=== PATIENT | male | born 1930 | race Caucasian/White ===

== ENCOUNTER 2019-10-09 22:41 | Inpatient (IN) | payer MEDICARE, OTHER ==
[~2019-10-09] VITALS: Ht 182.9 cm; Wt 95.3 kg
--- NOTE | 2019-10-09 22:52 | NUR ---
PATIENT WALKED IN FROM HOME WITH C/O RUQ ABDOMINAL PAIN, NAUSEA/VOMITING FOR 1 WEEK. WAS TOLD BY HIS MD DR. SPEAR TO COME IN .
[2019-10-09] MEDS ORDERED: GLIM4TAB PO (23:01)
[2019-10-09] MEDS ORDERED: IV NORMAL SALINE 500 ML IV ONE (23:15)
[2019-10-09] MEDS ORDERED: MORPHINE SULFATE 2 MG/1 ML DISP.SYRIN IV ONE (23:15)
[2019-10-09] MEDS ORDERED: PIPERACILLIN SODIUM/TAZOBACTAM 3.375 G in IV DEXTROSE 5% 50 ML IV ONE (23:15)
[2019-10-09] MEDS ORDERED: ONDANSETRON 4 MG/2 ML VIAL ONE (23:15)
[2019-10-09] MEDS ORDERED: MORPHINE SULFATE 2 MG/1 ML DISP.SYRIN ONE (23:15)
[2019-10-09] MEDS ORDERED: PIPERACILLIN/TAZOBACTAM/D5W 50 ML IV ONE (23:28)
[2019-10-09 23:31] LABS: BASOPHILS % (AUTO) 0.4 % (0.0-2.0); EOSINOPHILS # (AUTO) 0.3 K/uL (0.0-0.7); EOSINOPHILS % (AUTO) 3.9 % (0.0-7.0); HEMATOCRIT 48.3 % (36.7-47.1); HEMOGLOBIN 16.5 g/dL (12.5-16.3); LYMPHOCYTES # (AUTO) 1.1 K/uL (20.0-40.0); LYMPHOCYTES % (AUTO) 13.8 % (20.5-51.5); MEAN CORPUSCULAR HEMOGLOBIN 30.4 uug (23.8-33.4); MEAN CORPUSCULAR HGB CONC 34 g/dL (32.5-36.3); MEAN CORPUSCULAR VOLUME 89.1 fL (73.0-96.2); MONOCYTES # (AUTO) 0.8 K/uL (2.0-10.0); MONOCYTES % (AUTO) 9.8 % (0.0-11.0); NEUTROPHILS # (AUTO) 5.8 K/uL (1.8-8.9); NEUTROPHILS % (AUTO) 72.1 % (38.5-71.5); PLATELET COUNT (AUTO) 311 K/uL (152-348); POTASSIUM 4.4 mmol/L (3.5-5.1); RED BLOOD CELL COUNT(AUTO) 5.43 MIL/uL (4.06-5.63)
[2019-10-09 23:46] LABS: BILIRUBIN,DIRECT 0.3 mg/dL (0.0-0.2); BILIRUBIN,TOTAL 0.9 mg/dL (0.2-1.0); TOTAL PROTEIN, SERUM 6.8 g/dL (6.4-8.2)
--- NOTE | 2019-10-10 01:23 | NUR ---
Pt provided with 1 cup of water for PO challenge.
--- NOTE | 2019-10-10 01:25 | NUR ---
Rosa singh in [facility] - 10/10/19 at 0126 by MISSY Patient provided with 1 cup of water for swallow challenge.
[2019-10-10] MEDS ORDERED: DEXTROSE 50% 50 ML DISP.SYRIN IV ONE (01:30)
--- NOTE | 2019-10-10 01:32 | NUR ---
Dr. Hough on panel call with Dr. Caraballo.
[2019-10-10] MEDS ORDERED: ONDANSETRON 4 MG/2 ML VIAL IV ONE ×2 (01:45)
--- NOTE | 2019-10-10 01:48 | NUR ---
Pt. admitted to TELE , under care of Dr. GLASS Belongs List completed.
[2019-10-10 02:12] LABS: *BILIRUBIN,URIN NEGATIVE (NEGATIVE); *CLARITY,URINE CLEAR (CLEAR); *COLOR,URINE AMBER (YELLOW); *KETONES,URINE 1+ (NEGATIVE); LEUKOCYTE ESTERASE ,URINE NEGATIVE (NEGATIVE); NITRITE, URINE NEGATIVE (NEGATIVE); UGLUCOSE NEGATIVE (NEGATIVE)
[2019-10-10] MEDS ORDERED: ACETAMINOPHEN 325 MG TABLET PO PRN (02:15)
[2019-10-10] MEDS ORDERED: Z GUARD REMEDY PASTE 57 GM TUBE TOP PRN (02:15)
[2019-10-10] MEDS ORDERED: HYDROCODONE/APAP 5-325MG TABLET PO PRN (02:15)
[2019-10-10] MEDS ORDERED: MAGNESIUM HYDROXIDE 30 ML LIQUID UDC PO PRN (02:15)
[2019-10-10 02:18] LABS: *BLOOD, URINE TRACE (NEGATIVE)
[2019-10-10 02:29] LABS: BACTERIA,URINE NONE SEEN /HPF (NONE SEEN); RBC,URINE NONE SEEN /HPF (0-3); SQUAMOUS EPITHELIAL CELL,UR FEW /HPF (NONE SEEN)
--- NOTE | 2019-10-10 03:00 | NUR ---
PATIENT RECEIVED FROM ER CHRISTOPHER. V/S STABLE. NO S/S OF ACUTE DISTRESS. NSR WITH BUNDLE BRANCH NOTED ON TELE MONITOR. DENIES NAUSEA AND VOMITING AND PAIN AT THIS TIME. NPO STATUS ORDERED. ORDERS RECEIVED BY DR. GLASS. IV IN TACT AND PATENT. D5 1/2 NS RUNNING. BELONGING LIST COMPLETED. SKIN ASSESSED BUT PATIENT REFUSED ASSESSMENT ON GROIN AREA. WILL CONTINUE TO MONITOR.
[2019-10-10] MEDS: IV D5 1/2 NS 1000 ML 1,000 ML IV PRN ×2 (03:06→23:50)
[2019-10-10] MEDS ORDERED: PIPERACILLIN/TAZOBACTAM/D5W 50 ML IV ONE (05:53)
[2019-10-10] MEDS ORDERED: PIPERACILLIN SODIUM/TAZOBACTAM 3.375 G in IV DEXTROSE 5% 50 ML IV ONE (06:00)
[2019-10-10 06:29] VITALS: BP 150/88
--- NOTE | 2019-10-10 06:56 | NUR ---
ZOSYN ADMINISTRATION TIME CHANGED TO 0800. WILL ENDORSE TO ONCOMING MORNING NURSE TO ADMINISTER THE ZOSYN RECEIVED FROM PROJECT FINANCE ANALYST.
[2019-10-10] MEDS ORDERED: ONDANSETRON 4 MG/2 ML VIAL IV PRN (08:00)
--- NOTE | 2019-10-10 08:00 | NUR ---
Pt alert and oriented x 4. Pt had dark veronica colored urine. Pt continent and uses urinal. Pt denies any c/o pain, nausea, or vomiting. Bowel sound present x 4 queadrants. Fall precaution implemented. Instructed pt to call nursing for assistance when getting oob. Pt agreeable with plan of care. Call light is within reach. TELE SNR with right BBB.
[2019-10-10] MEDS: PIPERACILLIN SODIUM/TAZOBACTAM 3.375 G in IV DEXTROSE 5% 50 ML IV SCH ×3 (08:14→23:21)
[2019-10-10] MEDS: PANTOPRAZOLE SODIUM 40 MG VIAL IV SCH (08:16)
[2019-10-10] MEDS ORDERED: DEXTROSE 50% 50 ML DISP.SYRIN IV PRN (08:30)
--- NOTE | 2019-10-10 08:30 | NUR ---
Spoke with DR BEATRIS VARELA. New orders received and carried out.
--- NOTE | 2019-10-10 09:00 | NUR ---
Started pt on clear liquid with a apple juice to drink. Will monitor pt. pt states no nausea noted.
[2019-10-10] MEDS: BLOOD SUGAR DIAGNOSTIC 1 EACH STRIP VI SCH ×4 (09:21→20:14)
--- NOTE | 2019-10-10 10:59 | NUR ---
PT requesting another apple juice given and gave jello. No n/v noted from earlier with the apple juice. will continue to monitor.
--- NOTE | 2019-10-10 11:30 | NUR ---
Dr haney asked for EGD tomorrow @217 scheduled with [facility] manager supply chain planning already set up.
[2019-10-10 11:52] LABS: BASOPHILS % (AUTO) 0.6 % (0.0-2.0); EOSINOPHILS # (AUTO) 0.4 K/uL (0.0-0.7); EOSINOPHILS % (AUTO) 5.3 % (0.0-7.0); HEMATOCRIT 46.8 % (36.7-47.1); HEMOGLOBIN 15.5 g/dL (12.5-16.3); LYMPHOCYTES # (AUTO) 0.9 K/uL (20.0-40.0); LYMPHOCYTES % (AUTO) 12.9 % (20.5-51.5); MEAN CORPUSCULAR HEMOGLOBIN 29.8 uug (23.8-33.4); MEAN CORPUSCULAR HGB CONC 33 g/dL (32.5-36.3); MONOCYTES # (AUTO) 0.8 K/uL (2.0-10.0); MONOCYTES % (AUTO) 11.5 % (0.0-11.0); NEUTROPHILS # (AUTO) 5.1 K/uL (1.8-8.9); NEUTROPHILS % (AUTO) 69.7 % (38.5-71.5); PLATELET COUNT (AUTO) 277 K/uL (152-348); WHITE BLOOD COUNT (AUTO) 7.3 K/uL (3.6-10.2)
[2019-10-10 11:59] LABS: CREATININE 1.1 mg/dL (0.6-1.3); POTASSIUM 4.3 mmol/L (3.5-5.1)
[2019-10-10 12:00] VITALS: BP 125/46
[2019-10-10 12:13] LABS: THYROID STIMULATING HORMONE 1.22 mIU/mL (0.358-3.740)
[2019-10-10 13:04] LABS: BILIRUBIN,TOTAL 0.7 mg/dL (0.2-1.0); MAGNESIUM 2.1 mg/dL (1.8-2.4); PHOSPHOROUS 3.7 mg/dL (2.5-4.9); TOTAL PROTEIN, SERUM 6.2 g/dL (6.4-8.2)
--- NOTE | 2019-10-10 13:30 | NUR ---
Pt did not have much appetite for lunch. Pt only drank the supplement and tolerated.
[2019-10-10] MEDS: INSULIN REGULAR, HUMAN 300 UNIT/3 ML VIAL SQ PRN ×2 (16:01→20:15)
[2019-10-10 17:44] VITALS: BP 95/56
--- NOTE | 2019-10-10 18:00 | NUR ---
Notified Dr Sanchez of changes in pt's TELE from SNR to AFIB (confirmed with 12 lead EKG) rate of 95-106 for 40 mins and now back to SNR with righ bbb. Per DR sanchez pt is for cardiology consult.
--- NOTE | 2019-10-10 18:11 | NUR ---
Notified Dr sanchez that Pt having wide QRS on tele. pt asymptomatic denies any c/o pain.
--- NOTE | 2019-10-10 18:30 | NUR ---
Placed call to DR SPEAR secondary to nursing fireworks assembly supervisor [facility] states that pt will not have any procedures done without any covid negative results. Dr spear spoke with [facility]. GOT order from dr sanchez for covid test. PT is in no acute distress. Call light is within reach.
[2019-10-10 18:33] VITALS: BP 152/71
--- NOTE | 2019-10-10 19:30 | NUR ---
RECEIVED PT AWAKE, ALERT AND ORIENTEDX4. PT IN NO ACUTE DISTRESS. IV INTACT . SAFETY AND COMFORT PROVIDED. WILL CONTINUE TO MONITOR.
[2019-10-10 20:00] VITALS: BP 116/61
--- NOTE | 2019-10-10 21:30 | NUR ---
COVID TEST SWAB DONE AND SENT TO LAB
--- NOTE | 2019-10-10 22:00 | NUR ---
DR. SPEAR CALLED FOR UPDATE REGARDING THE PT. PT SHOULD BE NPO AFTER MIDNIGHT. PT SCHEDULE FOR EGD KADE. PT IN NO ACUTE DISTRESS. WILL CONTINUE TO MONITOR.
--- NOTE | 2019-10-10 23:49 | NUR ---
ZOFRAN GIVEN TO PT BECAUSE OF NAUSEA AND VOMITING.
[2019-10-11] VITALS (14 sets, daily range): BP systolic 94–144; BP diastolic 46–78
--- NOTE | 2019-10-11 06:01 | NUR ---
PT SLEPT INTERMITTENTLY. PT IN NO ACUTE RESPIRATORY DISTRESS. IV INTACT. ZOFRAN HELPED IN HIS NAUSEA AND VOMITING. PRESCRIBED MEDICATION GIVEN AND PT TOLERATED IT WELL. SAFETY AND COMFORT PROVIDED. WILL ENDORSE TO INCOMING NURSE FOR CONTINUITY OF CARE.
[2019-10-11 06:27] LABS: BASOPHILS % (AUTO) 0.3 % (0.0-2.0); EOSINOPHILS # (AUTO) 0.3 K/uL (0.0-0.7); EOSINOPHILS % (AUTO) 4.1 % (0.0-7.0); HEMATOCRIT 46.3 % (36.7-47.1); HEMOGLOBIN 15.4 g/dL (12.5-16.3); LYMPHOCYTES # (AUTO) 0.6 K/uL (20.0-40.0); LYMPHOCYTES % (AUTO) 8.3 % (20.5-51.5); MEAN CORPUSCULAR HGB CONC 33 g/dL (32.5-36.3); MONOCYTES # (AUTO) 0.9 K/uL (2.0-10.0); MONOCYTES % (AUTO) 11.6 % (0.0-11.0); NEUTROPHILS # (AUTO) 5.7 K/uL (1.8-8.9); NEUTROPHILS % (AUTO) 75.7 % (38.5-71.5); PLATELET COUNT (AUTO) 285 K/uL (152-348); RED BLOOD CELL COUNT(AUTO) 5.15 MIL/uL (4.06-5.63); WHITE BLOOD COUNT (AUTO) 7.6 K/uL (3.6-10.2)
[2019-10-11 06:28] LABS: BILIRUBIN,TOTAL 0.5 mg/dL (0.2-1.0); MAGNESIUM 1.9 mg/dL (1.8-2.4); PHOSPHOROUS 3.8 mg/dL (2.5-4.9); POTASSIUM 4.1 mmol/L (3.5-5.1); TOTAL PROTEIN, SERUM 6.5 g/dL (6.4-8.2)
[2019-10-11] MEDS: BLOOD SUGAR DIAGNOSTIC 1 EACH STRIP VI SCH ×4 (06:31→21:12)
[2019-10-11] MEDS: INSULIN REGULAR, HUMAN 300 UNIT/3 ML VIAL SQ PRN (07:28)
[2019-10-11] MEDS: PIPERACILLIN SODIUM/TAZOBACTAM 3.375 G in IV DEXTROSE 5% 50 ML IV SCH ×3 (07:44→23:41)
--- NOTE | 2019-10-11 08:00 | NUR ---
GAVE REPORT TO TISHA FROM OR. PT IN NO ACUTE DISTRESS. IV INTACT.
[2019-10-11] MEDS: PANTOPRAZOLE SODIUM 40 MG VIAL IV SCH (08:56)
--- NOTE | 2019-10-11 09:15 | NUR ---
PT WHEELED OUT FROM MED SURG FLOOR VIA GURNEY BY THE OR NURSES. PT STABLE.
[2019-10-11] MEDS ORDERED: PROPOFOL 200 MG/20 ML BOTTLE IV ONE (10:20)
[2019-10-11] MEDS ORDERED: IV LACTATED RINGERS SOLUTION 1,000 ML BAG IV ONE (10:20)
[2019-10-11] MEDS ORDERED: LIDOCAINE-MPF 2% 5 ML VIAL IJ ONE (10:20)
[2019-10-11] MEDS ORDERED: ALBUTEROL SULFATE 2.5 MG/3 ML NEBU ONE (10:26)
[2019-10-11] MEDS ORDERED: IPRATROPIUM BROMIDE 0.5 MG/2.5 ML NEBU ONE (10:26)
[2019-10-11] MEDS: MAG HYDROX/AL HYDROX/SIMETH 30 ML LIQUID UDC PO SCH ×4 (11:30→16:04)
--- NOTE | 2019-10-11 11:50 | NUR ---
GAVE REPORT TO ANGEL JUAREZ.
--- NOTE | 2019-10-11 11:51 | NUR ---
PT GOING TO ROOM 2 IN CCU.
--- NOTE | 2019-10-11 11:55 | NUR ---
Full telephone SBAR report received by ANN Ramirez 3rd floor.
--- NOTE | 2019-10-11 12:00 | NUR ---
Pt received from OR A&Ox2. Following commands. On 10L simple mask. Full SBAR report given at bedside by ANN Diaz.
--- NOTE | 2019-10-11 12:50 | NUR ---
DUE TO ABG RESULTS AND LOW SPO2, PT WAS PLACED ON BIPAP PER MD ORDERS. VERBAL SETTING GIVEN: IPAP 15, EPAP 5, PS 10, RR 20, 100% FIO2. PT MASK SECURED, LEAK OF 12. PTS ALARMS ON AND AUDIBLE. AMBUBAG AT BEDSIDE. NO INDICATION FOR SUCTIONING. WILL CONTINUE TO MONITOR. WAITING FOR PENDING POST ABG ORDERS.
--- NOTE | 2019-10-11 12:51 | NUR ---
WOUND CARE CONSULT: PT IN CCU AT THIS TIME AND UNSTABLE FOR SKIN ASSESSMENT. DISCUSSED SKIN PROTECTION RECOMMENDATIONS WITH NURSING STAFF. WILL SEE PRN. JOVEL IN AGREEMENT WITH PLAN OF CARE.
--- NOTE | 2019-10-11 12:52 | NUR ---
GRIPPER INSTALLER Pro here to see pt. Full report given. Pro aware of pt's high heart rate V-tach and low saturation SPO2 75's. Market Risk Specialist to come consult. New orders received and carried out.
--- NOTE | 2019-10-11 13:00 | NUR ---
Pt on BiPAP and unable to take any PO pills at this time. Pt to remain NPO.
[2019-10-11] MEDS: IV D5 1/2 NS 1000 ML 1,000 ML IV PRN (13:08)
[2019-10-11] MEDS: METOCLOPRAMIDE HCL 10 MG/2 ML VIAL IV SCH ×2 (13:10→16:27)
[2019-10-11 13:23] LABS: ABG BASE EXCESS -4.2 mmol/L; ABG HCO3 24.6 mmol/L; ABG PCO2 59.4 mmHg (35.0-45.0); ABG PH 7.235 (7.350-7.450); ABG PO2 40.7 mmHg (75.0-100.0); ABG SITE LEFT RADIAL; ABG TOTAL HEMOGLOBIN 17.3 G/dL (13.5-18.0); COHb 1.2 % (0.5-1.5); MetHb 0.3 % (0.0-1.5); O2Hb 68.8 % (94.0-97.0)
--- NOTE | 2019-10-11 13:38 | NUR ---
Spoke with Dr. Estevez on the telephone and made aware for consultation. Full SBAR report given. New orders received.
[2019-10-11] MEDS ORDERED: IPRATROPIUM BROMIDE 0.5 MG/2.5 ML NEBU NEB PRN (14:15)
[2019-10-11] MEDS ORDERED: ALBUTEROL SULFATE 2.5 MG/3 ML NEBU NEB PRN (14:15)
--- NOTE | 2019-10-11 14:18 | NUR ---
Spoke with SPEED BELT SANDER TENDER Pro regarding pt's low blood pressure. New orders received.
--- NOTE | 2019-10-11 14:25 | NUR ---
Dr. Segura here to see pt. Full report given. No new orders received.
[2019-10-11] MEDS ORDERED: PHENYLEPHRINE IV 50 MG in IV NORMAL SALINE 245 ML IV PRN (14:30)
[2019-10-11 14:39] LABS: ABG HCO3 21.9 mmol/L; ABG PCO2 42.5 mmHg (35.0-45.0); ABG PH 7.329 (7.350-7.450); ABG PO2 65.7 mmHg (75.0-100.0); ABG SITE LEFT RADIAL; ABG TOTAL HEMOGLOBIN 17.1 G/dL (13.5-18.0); COHb 1.2 % (0.5-1.5); MetHb 0.6 % (0.0-1.5); O2Hb 91.5 % (94.0-97.0); VENT MODE BIPAP
--- NOTE | 2019-10-11 17:45 | NUR ---
PICC line RN here to insert midline.
--- NOTE | 2019-10-11 20:00 | NUR ---
RECEIVED PT VERBALLY RESPONSIVE & FOLLOWS TO COMMAND. DENIES PAIN. ON BIPAP I-15/E-5, RATE-20, FIO2-100%., W/ O2 SAT OF 98%. IVF D51/2NS @ 75CC/HR ON RFA. MIDLINE INTACT & PATENT ON JAIME. REPOSITIONED ON HIS SIDE W/ HOB ELEVATED.NOT IN ANY DISTRESS.
[2019-10-11] MEDS ORDERED: DIGOXIN 500 MCG/2 ML AMP IV ONE (22:15)
[2019-10-11] MEDS ORDERED: HOME MED MISCELLANEOUS OP SCH (22:15)
[2019-10-11] MEDS ORDERED: HOME MED MISCELLANEOUS XX SCH ×3 (22:15)
--- NOTE | 2019-10-11 22:15 | NUR ---
CALLLED DR SAUCEDA RE: UNCONTROLLED AFIB HR-115-125/MIN. W/ ORDERED.
--- NOTE | 2019-10-11 22:35 | NUR ---
CALLED SHRUTI RE: EYE DROP MEDICATIONS W/ ORDERS TO CONT. HOME MEDS.
[2019-10-11] MEDS ORDERED: PIPERACILLIN/TAZOBACTAM/D5W 50 ML IV ONE (23:38)
[2019-10-12] VITALS (15 sets, daily range): BP systolic 96–142; BP diastolic 42–87
[2019-10-12] MEDS: IV D5 1/2 NS 1000 ML 1,000 ML IV PRN (02:47)
--- NOTE | 2019-10-12 04:18 | NUR ---
SLEPT WELL.V/S STABLE.
[2019-10-12 05:17] LABS: BASOPHILS % (AUTO) 0.1 % (0.0-2.0); EOSINOPHILS % (AUTO) 0.1 % (0.0-7.0); HEMATOCRIT 44.1 % (36.7-47.1); HEMOGLOBIN 14.7 g/dL (12.5-16.3); LYMPHOCYTES # (AUTO) 0.7 K/uL (20.0-40.0); LYMPHOCYTES % (AUTO) 6.3 % (20.5-51.5); MEAN CORPUSCULAR HEMOGLOBIN 30.2 uug (23.8-33.4); MEAN CORPUSCULAR HGB CONC 33 g/dL (32.5-36.3); MEAN CORPUSCULAR VOLUME 90.8 fL (73.0-96.2); MONOCYTES # (AUTO) 1.1 K/uL (2.0-10.0); MONOCYTES % (AUTO) 9.8 % (0.0-11.0); NEUTROPHILS # (AUTO) 9.7 K/uL (1.8-8.9); NEUTROPHILS % (AUTO) 83.7 % (38.5-71.5); PLATELET COUNT (AUTO) 263 K/uL (152-348); RED BLOOD CELL COUNT(AUTO) 4.86 MIL/uL (4.06-5.63); WHITE BLOOD COUNT (AUTO) 11.5 K/uL (3.6-10.2)
[2019-10-12 05:26] LABS: CARBON DIOXIDE 29 mmol/L (21-32); CHLORIDE 103 mmol/L (98-107); CREATININE 1.8 mg/dL (0.6-1.3); GLUCOSE 158 mg/dL (74-106); MAGNESIUM 1.8 mg/dL (1.8-2.4); PHOSPHOROUS 4.6 mg/dL (2.5-4.9); POTASSIUM 4.5 mmol/L (3.5-5.1); UREA NITROGEN, BLOOD 20 mg/dL (7-18)
--- NOTE | 2019-10-12 06:18 | NUR ---
BACK TO SLEEP AFTER CXR. NOT IN ANY DISTRESS.
[2019-10-12] MEDS: BLOOD SUGAR DIAGNOSTIC 1 EACH STRIP VI SCH ×4 (07:30→20:21)
--- NOTE | 2019-10-12 07:30 | NUR ---
RECIEVED PT LYING IN BED, APPEARS VERY SLEEPY BUT ORIENTED X 3. DENIES ANY DISCOMFORTS, ABLE TO MOVE ALL EXTREMETIES BUT MILDLY WEAK. HR - PACING 100% WITH UNDERLYING SR. PT ON BIPAP AT 15/5 SETTING , SATURATION IS 97-100%. NPO AT THIS TIME. NO PEDAL EDEMA NOTED AT THIS TIME.
--- NOTE | 2019-10-12 08:00 | NUR ---
PT PLACED ON NASAL CANNULA AT 5L AND SATURATION IS AT 92-96%. COUGHS ON AND OFF AND PRODUCTIVE THICK WHITISH PHLEGM. TUBE FEEDING IS OFF AT THIS TIME. NO BM NOTED. ABDOMEN IS SLIGHTLY DISTENDED BUT SOFT TO TOUCH. Addendum: 10/12/19 at 1508 by ADRYAN CASTILLO RN TUBE FEEDING IS AN ERROR. NO NGT ALSO. PT IS NPO
[2019-10-12] MEDS: PIPERACILLIN SODIUM/TAZOBACTAM 3.375 G in IV DEXTROSE 5% 50 ML IV SCH ×3 (08:17→23:29)
[2019-10-12] MEDS: MAG HYDROX/AL HYDROX/SIMETH 30 ML LIQUID UDC PO SCH ×6 (08:17→18:51)
[2019-10-12] MEDS: METOCLOPRAMIDE HCL 10 MG/2 ML VIAL IV SCH ×3 (08:17→17:11)
[2019-10-12] MEDS: PANTOPRAZOLE SODIUM 40 MG VIAL IV SCH (08:57)
[2019-10-12] MEDS ORDERED: DORZOLAMIDE/TIMOLOL OPHT DROP 10 ML BOTTLE EACHEYE SCH (09:00)
[2019-10-12] MEDS ORDERED: TIMOLOL EACHEYE SCH (09:00)
[2019-10-12] MEDS ORDERED: DORZOLAMIDE EACHEYE SCH (09:00)
[2019-10-12] MEDS ORDERED: [UNRECOGNIZED DRUG - OTHER] EACHEYE SCH (09:00)
--- NOTE | 2019-10-12 09:00 | NUR ---
SEEN AND EXAMINED BY DR SANCHEZ WITH NEW ORDERS.
[2019-10-12 09:16] LABS: ABG BASE EXCESS 0.3 mmol/L; ABG HCO3 26.5 mmol/L; ABG PCO2 48.5 mmHg (35.0-45.0); ABG PH 7.355 (7.350-7.450); ABG PO2 45.1 mmHg (75.0-100.0); ABG SITE RIGHT RADIAL; ABG TOTAL HEMOGLOBIN 15.4 G/dL (13.5-18.0); COHb 1.2 % (0.5-1.5); MetHb 0.4 % (0.0-1.5); O2Hb 82.1 % (94.0-97.0); VENT MODE Nasal Cannula
--- NOTE | 2019-10-12 10:00 | NUR ---
SEEN AND EXAMINED BY DR BAHENA WITH ORDERS TO TRANSFER TO TELE. IVF NS 500ML IV BOLUS ORDERED STARTED VIA THE RIGHT FA. PT IS BEING AWARE THAT HE WILL BE TRANSFERRED TO A REGULAR ROOM.
[2019-10-12] MEDS ORDERED: IV NORMAL SALINE 500 ML IV ONE ×2 (11:00→15:00)
--- NOTE | 2019-10-12 11:30 | NUR ---
REPORT 9GIVEN TO ARIE JUAREZ.
--- NOTE | 2019-10-12 12:00 | NUR ---
PT IS TRANSFERRED TO 306 VIA BED. CONDITION IS STABLE.
[2019-10-12] MEDS ORDERED: IV NORMAL SALINE 500 ML BAG IV ONE (15:00)
[2019-10-12] MEDS: IV NORMAL SALINE 1,000 ML IV PRN (15:13)
[2019-10-12] MEDS: [UNRECOGNIZED DRUG - OTHER] EACHEYE SCH (17:05)
[2019-10-12] MEDS: NETARSUDIL 0.02% EACHEYE SCH (17:05)
[2019-10-12] MEDS: DILTIAZEM HCL CD 120 MG CAP.SR.24H PO SCH (17:10)
--- NOTE | 2019-10-12 19:20 | NUR ---
Received patient lying in bed. AAOx3. In no acute distress. Denies any pain or SOB. O2 sat at 96% at 5 LPM of O2 via NC. IV site on right FA intact and patent. NSR on tele at 92/min with PAC's. Safety measure initiated and call devine within reached.
[2019-10-12] MEDS: DORZOLAMIDE EACHEYE SCH (20:16)
[2019-10-12] MEDS: TIMOLOL EACHEYE SCH (20:16)
[2019-10-12] MEDS: [UNRECOGNIZED DRUG - OTHER] EACHEYE SCH (20:16)
[2019-10-12] MEDS: [UNRECOGNIZED DRUG - OTHER] EACHEYE SCH (20:35)
[2019-10-12] MEDS: TAFLUPROST 0.0015% EACHEYE SCH (20:35)
[2019-10-12] MEDS ORDERED: [UNRECOGNIZED DRUG - OTHER] EACHEYE SCH (21:00)
[2019-10-12] MEDS ORDERED: NETARSUDIL 0.02% EACHEYE SCH (21:00)
--- NOTE | 2019-10-12 22:30 | NUR ---
RT Oden informed this nurse that patient is refusing his BIPAP. Patient on O2 at 5LPM via NC in place. o2 sat at 94%. Will continue to monitor.
--- NOTE | 2019-10-12 23:30 | NUR ---
Patient saturation at 87-88% on O2 at 5LPN via NC. Replace with mask at 7L. Will continue to monitor O2 sat.
--- NOTE | 2019-10-12 23:45 | NUR ---
O2 sat now at 92% on O2 at 7lpm via mask. Denies any SOB when asked. Continue to monitor.
[2019-10-13 00:20] VITALS: BP 107/44
[2019-10-13 04:50] VITALS: BP 132/74
--- NOTE | 2019-10-13 05:30 | NUR ---
Taper back to 5LPM via NC. Patient O2 sat. between 94-95% at this time.
[2019-10-13 06:05] LABS: BASOPHILS % (AUTO) 0.2 % (0.0-2.0); EOSINOPHILS # (AUTO) 0.3 K/uL (0.0-0.7); EOSINOPHILS % (AUTO) 2.7 % (0.0-7.0); HEMATOCRIT 44.5 % (36.7-47.1); HEMOGLOBIN 14.5 g/dL (12.5-16.3); LYMPHOCYTES # (AUTO) 0.6 K/uL (20.0-40.0); LYMPHOCYTES % (AUTO) 5.7 % (20.5-51.5); MEAN CORPUSCULAR HEMOGLOBIN 29.7 uug (23.8-33.4); MEAN CORPUSCULAR HGB CONC 33 g/dL (32.5-36.3); MEAN CORPUSCULAR VOLUME 91.1 fL (73.0-96.2); MONOCYTES # (AUTO) 0.9 K/uL (2.0-10.0); MONOCYTES % (AUTO) 8.3 % (0.0-11.0); NEUTROPHILS # (AUTO) 8.9 K/uL (1.8-8.9); NEUTROPHILS % (AUTO) 83.1 % (38.5-71.5); PLATELET COUNT (AUTO) 271 K/uL (152-348); RED BLOOD CELL COUNT(AUTO) 4.89 MIL/uL (4.06-5.63); WHITE BLOOD COUNT (AUTO) 10.7 K/uL (3.6-10.2)
[2019-10-13] MEDS: IV NORMAL SALINE 1,000 ML IV PRN (06:05)
[2019-10-13 06:15] LABS: CREATININE 1.1 mg/dL (0.6-1.3); MAGNESIUM 1.9 mg/dL (1.8-2.4); PHOSPHOROUS 2.6 mg/dL (2.5-4.9); POTASSIUM 4.3 mmol/L (3.5-5.1)
--- NOTE | 2019-10-13 06:24 | NUR ---
AAOx3. In no acute distress. Denies any pain or SOB. O2 sat at 92% at 7LPM of O2 via mask. IV site on right FA intact and patent. NSR on tele at 90/min with PAC's. No adverse reaction noted from IV ABX. Needs attended to and met. Safety measure maintained and call devine within reached.
[2019-10-13] MEDS: MAG HYDROX/AL HYDROX/SIMETH 30 ML LIQUID UDC PO SCH ×6 (06:32→18:10)
[2019-10-13] MEDS: BLOOD SUGAR DIAGNOSTIC 1 EACH STRIP VI SCH ×4 (06:32→21:15)
--- NOTE | 2019-10-13 07:45 | NUR ---
Patient in bed, awake and verbally responsive. No signs of distress noted. On Oxygen at 5L/min via Nasal canula, saturating 94%. No complain of Pain at this time. No complain of Nausea/Vomiting. Kept clean and comfortable. Kept the call light within easy reach. Will continue to Monitor.
[2019-10-13] MEDS: METOCLOPRAMIDE HCL 10 MG/2 ML VIAL IV SCH ×3 (08:05→17:27)
[2019-10-13] MEDS: PIPERACILLIN SODIUM/TAZOBACTAM 3.375 G in IV DEXTROSE 5% 50 ML IV SCH ×2 (08:10→15:39)
[2019-10-13] MEDS ORDERED: HOME MED MISCELLANEOUS OP SCH (08:15)
[2019-10-13] MEDS ORDERED: HOME MED MISCELLANEOUS XX SCH ×3 (08:15)
[2019-10-13] MEDS ORDERED: PHENYLEPHRINE IV 50 MG in IV NORMAL SALINE 245 ML IV PRN (08:15)
[2019-10-13] MEDS ORDERED: IV D5 1/2 NS 1000 ML 1,000 ML IV PRN (08:15)
[2019-10-13] MEDS ORDERED: METOCLOPRAMIDE HCL 10 MG/2 ML VIAL IV SCH (08:15)
--- NOTE | 2019-10-13 08:15 | NUR ---
Received a call from Dr. Macias with New Order of Clear Liquid diet, Will continue to monitor.
[2019-10-13] MEDS: DILTIAZEM HCL CD 120 MG CAP.SR.24H PO SCH (08:58)
[2019-10-13] MEDS: PANTOPRAZOLE SODIUM 40 MG VIAL IV SCH (08:58)
--- NOTE | 2019-10-13 09:00 | NUR ---
Patient was placed back to NPO until seen by ST for Swallow evaluation.
[2019-10-13] MEDS: TIMOLOL EACHEYE SCH ×2 (09:20→20:17)
[2019-10-13] MEDS: [UNRECOGNIZED DRUG - OTHER] EACHEYE SCH ×2 (09:20→20:17)
[2019-10-13] MEDS: DORZOLAMIDE EACHEYE SCH ×2 (09:20→20:17)
[2019-10-13 16:13] VITALS: BP 116/56
[2019-10-13] MEDS: [UNRECOGNIZED DRUG - OTHER] EACHEYE SCH (16:14)
[2019-10-13] MEDS: NETARSUDIL 0.02% EACHEYE SCH (16:14)
--- NOTE | 2019-10-13 16:27 | NUR ---
Received a call from Son (Neftaly Floyd) that patient will be transfer to [facility]. advertising production manager is aware. will continue to follow up.
[2019-10-13] MEDS: ENSURE ENLIVE (VAN) 240 ML LIQUID PO SCH (17:03)
[2019-10-13] MEDS ORDERED: FUROSEMIDE 20 MG/2 ML VIAL IV ONE (18:15)
--- NOTE | 2019-10-13 18:25 | NUR ---
Patient in bed, awake and verbally responsive. On Oxygen at 5LPM via Nasal canula saturating 93%. No complain of Pain or discomfort. Seen by Dr. Segura with Order to D/C IVF and IV Lasix 20mg x 1. All due medications given as Ordered. kept clean and comfortable. RP (son) wants to be updated regarding transfer to [facility]. Will endorse to Oncoming Nurse.
[2019-10-13 20:00] VITALS: BP 130/71
[2019-10-13] MEDS: TAFLUPROST 0.0015% EACHEYE SCH (20:17)
[2019-10-13] MEDS: [UNRECOGNIZED DRUG - OTHER] EACHEYE SCH (20:17)
--- NOTE | 2019-10-13 21:46 | NUR ---
BS 76; jostin and crackers offered. per pt's son, requesting for sleeping medication for the pt; GRETTA LARA paged.
[2019-10-13] MEDS ORDERED: ZOLPIDEM 5 MG TABLET PO PRN (22:15)
[2019-10-14] VITALS: BP 143/71
[2019-10-14] MEDS: PIPERACILLIN SODIUM/TAZOBACTAM 3.375 G in IV DEXTROSE 5% 50 ML IV SCH ×3 (00:02→15:59)
[2019-10-14 04:00] VITALS: BP 142/65
[2019-10-14] MEDS: BLOOD SUGAR DIAGNOSTIC 1 EACH STRIP VI SCH ×5 (06:20→16:47)
[2019-10-14 06:46] LABS: BILIRUBIN,TOTAL 0.7 mg/dL (0.2-1.0); MAGNESIUM 1.9 mg/dL (1.8-2.4); PHOSPHOROUS 2.1 mg/dL (2.5-4.9); POTASSIUM 3.6 mmol/L (3.5-5.1); TOTAL PROTEIN, SERUM 5.8 g/dL (6.4-8.2)
--- NOTE | 2019-10-14 06:55 | NUR ---
blood sugar is 67 given juice; checked again 66 juice and crackers given and then 69; will call for early tray for patient refused juice. will endorse to AM RN
[2019-10-14 07:03] LABS: BASOPHILS % (AUTO) 0.3 % (0.0-2.0); EOSINOPHILS # (AUTO) 0.4 K/uL (0.0-0.7); EOSINOPHILS % (AUTO) 4.4 % (0.0-7.0); HEMATOCRIT 44.1 % (36.7-47.1); HEMOGLOBIN 14.5 g/dL (12.5-16.3); LYMPHOCYTES # (AUTO) 0.5 K/uL (20.0-40.0); LYMPHOCYTES % (AUTO) 5.7 % (20.5-51.5); MEAN CORPUSCULAR HEMOGLOBIN 29.8 uug (23.8-33.4); MEAN CORPUSCULAR HGB CONC 33 g/dL (32.5-36.3); MEAN CORPUSCULAR VOLUME 90.6 fL (73.0-96.2); MONOCYTES # (AUTO) 0.6 K/uL (2.0-10.0); MONOCYTES % (AUTO) 6.6 % (0.0-11.0); NEUTROPHILS # (AUTO) 7.6 K/uL (1.8-8.9); PLATELET COUNT (AUTO) 287 K/uL (152-348); RED BLOOD CELL COUNT(AUTO) 4.87 MIL/uL (4.06-5.63); WHITE BLOOD COUNT (AUTO) 9.2 K/uL (3.6-10.2)
[2019-10-14] MEDS: METOCLOPRAMIDE HCL 10 MG/2 ML VIAL IV SCH ×3 (07:38→17:23)
[2019-10-14] MEDS: MAG HYDROX/AL HYDROX/SIMETH 30 ML LIQUID UDC PO SCH ×5 (07:38→17:07)
--- NOTE | 2019-10-14 08:00 | NUR ---
Patient in bed, awake and verbally responsive. On Oxygen at 4L via Nasal Canula, saturating 95%. No complain of Pain. Recent Blood is 84, No signs of Hypoglycemia noted. Kept clean and comfortable. Still awaiting for transfer to [facility]. Will continue to monitor.
[2019-10-14] MEDS: PANTOPRAZOLE SODIUM 40 MG VIAL IV SCH (08:16)
[2019-10-14] MEDS: DILTIAZEM HCL CD 120 MG CAP.SR.24H PO SCH (08:17)
[2019-10-14] MEDS: ENSURE ENLIVE (VAN) 240 ML LIQUID PO SCH ×2 (08:45→17:07)
[2019-10-14] MEDS ORDERED: MULTIVITAMINS,THERAPEUTIC TABLET PO SCH (09:00)
[2019-10-14] MEDS ORDERED: MULTIVITAMINS 5 ML LIQUID UDC PO SCH (09:00)
[2019-10-14] MEDS ORDERED: POTASSIUM CHLORIDE 20 MEQ POWDER PACKET PO ONE (09:15)
[2019-10-14] MEDS: DORZOLAMIDE EACHEYE SCH (09:16)
[2019-10-14] MEDS: [UNRECOGNIZED DRUG - OTHER] EACHEYE SCH (09:16)
[2019-10-14] MEDS: TIMOLOL EACHEYE SCH (09:16)
[2019-10-14] MEDS ORDERED: FUROSEMIDE 20 MG/2 ML VIAL IV ONE (09:30)
--- NOTE | 2019-10-14 09:59 | NUR ---
Received a call from [facility], spoke with Deven oil field caser regarding Transfer, per Deven No Bed available yet, He will coordinate with regional property manager Catalina, I also faxed the covid 19 result to [phone].
[2019-10-14] MEDS ORDERED: NEUTRA PHOS PACKET PO ONE (11:00)
--- NOTE | 2019-10-14 11:00 | NUR ---
Patient noted with Flutter and Junctional Scape Rhythm on Montr, Dr. Segura made aware with Order to Discontinue Diltiazem.
[2019-10-14 11:31] VITALS: BP 105/61
[2019-10-14] MEDS ORDERED: PIPE3.379 IV (13:04)
[2019-10-14 16:00] VITALS: BP 105/60
[2019-10-14] MEDS: [UNRECOGNIZED DRUG - OTHER] EACHEYE SCH (17:07)
[2019-10-14] MEDS: NETARSUDIL 0.02% EACHEYE SCH (17:07)
--- NOTE | 2019-10-14 18:31 | NUR ---
Patient in bed, awake, alert and verbally responsive. On Oxygen at 4L via Nasal canula, saturating 94%. No complain of pain or discomfort. Patient with Order to be transfer to [facility], Spoke with Scott and gave report, patient will be admitted under Dr. Hitchcock Rm [id number], Discharge instructions given to Patient, all belongings was signed and sent with Patient, Removed coater helper and Wristband. Patient was discharged via [facility] with 2EMT and 2 Nurse.
== END 2019-10-14 18:30 | disposition short-term general hospital (02) | DRG 374 ==
LOC: ER 22:44 → TELE3 10-10 02:32 → CCU 10-11 12:41 → TELE3 10-12 13:00
PROVIDERS: ADMIT Internal Medicine; ATTEND Nurse Practitioner Acute Care
PROC: 0DB98ZX Excision of Duodenum, Via Natural or Artificial Opening Endoscopic, Diagnostic (ICD-10-PCS; principal; 2019-10-11)
PROC: 0DB68ZX Excision of Stomach, Via Natural or Artificial Opening Endoscopic, Diagnostic (ICD-10-PCS; 2019-10-11)
PROC: 5A09457 Assistance with Respiratory Ventilation, 24-96 Consecutive Hours, Continuous Positive Airway Pressure (ICD-10-PCS; 2019-10-11)
DX: C16.3 Malignant neoplasm of pyloric antrum (principal); J69.0 Pneumonitis due to inhalation of food and vomit; J96.01 Acute respiratory failure with hypoxia; I50.31 Acute diastolic (congestive) heart failure; N17.0 Acute kidney failure with tubular necrosis; J96.02 Acute respiratory failure with hypercapnia; K31.1 Adult hypertrophic pyloric stenosis; I45.2 Bifascicular block; D68.69 Other thrombophilia; E87.2 Acidosis; I48.92 Unspecified atrial flutter; K25.9 Gastric ulcer, unspecified as acute or chronic, without hemorrhage or perforation; I48.0 Paroxysmal atrial fibrillation; K57.30 Diverticulosis of large intestine without perforation or abscess without bleeding; E11.9 Type 2 diabetes mellitus without complications; E78.5 Hyperlipidemia, unspecified; N40.0 Benign prostatic hyperplasia without lower urinary tract symptoms; M51.36 Other intervertebral disc degeneration, lumbar region; I25.10 Atherosclerotic heart disease of native coronary artery without angina pectoris; K26.9 Duodenal ulcer, unspecified as acute or chronic, without hemorrhage or perforation; K29.50 Unspecified chronic gastritis without bleeding; E66.9 Obesity, unspecified; K21.9 Gastro-esophageal reflux disease without esophagitis; Z68.28 Body mass index [BMI] 28.0-28.9, adult; Z79.84 Long term (current) use of oral hypoglycemic drugs
CPT/HCPCS: 36415; 36600; 70030-TC; 71045; 83605; 83690; 83735; 84100; 84153; 84443; 85025; 87040; 87070; 87086; 88312-TC; 93005; 93307; 94660; 94664; A4217; C9113; G0378; J1160; J1815; J1940; J2270; J2370; J2405; J2543; J2765; J3490; J3590; J7030; J7040; J7050; J7060; J7120; U0003-CS